=== PATIENT | male | born 2005 | race Caucasian/White ===

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

== ENCOUNTER 2023-08-08 20:45 | Emergency (ER) | payer OTHER ==
[2023-08-08] MEDS ORDERED: Ketorolac Tromethamine 30 MG/ML VIAL ONE (22:36)
== END 2023-08-08 23:28 | disposition home or self-care (01) ==
LOC: CSHERS 20:45
DX: S29.011A Strain of muscle and tendon of front wall of thorax, initial encounter (principal); X58.XXXA Exposure to other specified factors, initial encounter
CPT/HCPCS: 96372; J1885